=== PATIENT | female | born 1950 | race Caucasian/White ===

== ENCOUNTER 2017-03-06 11:44 | Observation (INO) ==
[2017-03-06] MEDS ORDERED: *HR* FentaNYL (PF) 100 MCG/2 ML VIAL IVP ONE (12:30)
[2017-03-06 12:39] LABS: Basophils # 0.1 K/mcL (0.0-0.2); Basophils % 0.6 %; Eosinophils # 0.3 K/mcL (0.0-0.6); Eosinophils % 2.4 %; Hematocrit 33.6 % (35.3-44.9); Hemoglobin 10.9 g/dL (11.5-15.4); Immature Granulocytes % 0.3 % (0-4); Lymphocytes # 1.5 K/mcL (0.6-4.6); Lymphocytes % 12.8 %; Mean Corpuscular HGB Conc 32.4 g/dL (31.6-35.5); Mean Corpuscular Hemoglobin 29.5 pg (28.0-33.3); Mean Corpuscular Volume 91.1 fL (83.0-100.0); Mean Platelet Volume 11.4 fL (9.4-12.4); Monocytes % 8.6 %; Neutrophils # 8.7 K/mcL (1.6-8.9); Platelet Count 271 K/mcL (140-400); Red Blood Count 3.69 M/mcL (3.82-4.97); Red Cell Distribution Width 13.2 % (11.5-14.5); Segmented Neutrophils % 75.3 %
[2017-03-06 12:45] LABS: INR 1.1; Prothrombin Time 11.6 Seconds (9.4-12.1)
[2017-03-06 12:47] LABS: Activated Partial Thrombo Time 25.6 Seconds (26.0-36.0)
[2017-03-06 12:53] LABS: Bilirubin,Urine Negative (Negative); Blood,Urine Negative (Negative); Clarity,Urine Clear (Clear); Color,Urine Yellow (Yellow); Glucose,Urine (UA) 500 mg/dL (Normal); Ketones,Urine Negative (Negative); Leukocyte Esterase,Urine Negative (Negative); Nitrite,Urine Negative (Negative); Protein,Urine >=300 mg/dL (Neg-Trace); Specific Gravity,Urine 1.027 (1.010-1.025); Urobilinogen,Urine Normal (Normal)
[2017-03-06 12:54] LABS: Bacteria,Urine None Seen per hpf (None-Few); Hyaline Casts,Urine Few per lpf (None-Few); RBC,Urine 0-3 per hpf (0-3); Squamous Epithelial Cell,Urine Many per lpf (None-Few)
[2017-03-06 12:56] LABS: Albumin 3.4 g/dL (3.5-5.7); Albumin/Globulin Ratio 1.1 (1.1-2.2); Bilirubin,Direct 0.1 mg/dL (0.0-0.2); Bilirubin,Indirect 0.4 mg/dL (0.0-1.2); Bilirubin,Total 0.5 mg/dL (0.3-1.0); Calcium 8.9 mg/dL (8.6-10.3); Globulin 3.2 g/dL (2.4-3.5); Magnesium 1.5 mg/dL (1.6-2.6); Phosphorous 2.6 mg/dL (2.7-4.5); Total Protein 6.6 g/dL (6.4-8.9)
--- NOTE | 2017-03-06 13:03 | Emergency Department Note ---
Disposition Clinical Impression: Odynophagia, Thyroglossal duct cyst, Hypoxia Dysphagia Qualifiers: Dysphagia type: esophageal phase Qualified Code(s): R13.10 - Dysphagia, unspecified Disposition: Admitted As Inpatient Time of Disposition: 16:43 General Adult HPI - General Chief complaint: ED Weakness Stated complaint: low glucose Time Seen by Provider: 03/06/17 11:53 Source: patient Limitations: no limitations Nursing Notes Reviewed: Yes Vital Signs Reviewed: Yes - History of Present Illness HPI Narrative: 66-year-old female complains of throat pain and difficulty swallowing for the past 3 days. Patient states she is unable to swallow food or liquids and is a diabetic. Patient is unsure why she has swelling in the anterior part of her throat. Patient has never had this happen before. No trauma involved. Patient denies any fevers. Patient had hypoglycemic episode levels are in the 40s. Pain Scale: 0 - Related Data Home Medications Medication Instructions Recorded Confirmed Amoxicillin/Clavulanate [Augmentin] 875 mg PO BID 03/06/17 03/06/17 Aspirin Enteric Coated [Aspirin EC] 81 mg PO DAILY 03/06/17 03/06/17 Atorvastatin Calcium [Lipitor] 80 mg PO HS 03/06/17 03/06/17 Carvedilol [Coreg] 25 mg PO BID 03/06/17 03/06/17 Cholecalciferol (D-3) [Vitamin D] 1,000 unit PO DAILY 03/06/17 03/06/17 Cinnamon Bark [Cinnamon] 1,000 mg PO DAILY 03/06/17 03/06/17 Cyanocobalamin (Vitamin B-12) 1,000 mcg PO DAILY 03/06/17 03/06/17 [Vitamin B12] Cyclobenzaprine [Flexeril] 10 mg PO HS 03/06/17 03/06/17 Fenofibrate,Micronized 130 mg PO DAILY 03/06/17 03/06/17 [Fenofibrate] Fish Oil/Dha/Epa [Fish Oil 1,200 2 each PO DAILY 03/06/17 03/06/17 mg Fish Oil] Gluc Castillo/Chondro Castillo A/Vit C/Mn 2 each PO DAILY 03/06/17 03/06/17 [Glucosamine Chondroitin Tab] Irbesartan/Hydrochlorothiazide 1 each PO DAILY 03/06/17 03/06/17 [Avalide 300-12.5 mg Tablet] Magnesium Chloride [Slow-Mag] 143 mg PO DAILY 03/06/17 03/06/17 Montelukast [Singulair] 10 mg PO DAILY 03/06/17 03/06/17 Omeprazole [PriLOSEC] 20 mg PO DAILY 03/06/17 03/06/17 Oxybutynin Chloride [Ditropan Xl] 5 mg PO DAILY 03/06/17 03/06/17 Paroxetine HCl [Paroxetine Cr] 50 mg PO DAILY 03/06/17 03/06/17 Sennosides [Senna] 17.2 mg PO DAILY 03/06/17 03/06/17 Subcutaneous Insulin Pump [T:Slim] 1 each MC AD 03/06/17 03/06/17 Tramadol HCl [Ultram] 50 mg PO Q6H PRN 03/06/17 03/06/17 clonazePAM [Klonopin] 1 mg PO DAILY 03/06/17 03/06/17 Allergies Allergy/AdvReac Type Severity Reaction Status Date / Time meperidine [From Demerol] Allergy Rash Verified 03/06/17 11:50 pioglitazone [From Actos] Allergy Rash Verified 03/06/17 11:50 All systems ED: reviewed and negative except as stated. Review of Systems: As Per HPI Constitutional: Reports: weakness. Denies: fever, chills Eyes: Denies: vision change ENT ED: Reports: congestion Cardiovascular: Denies: chest pain Respiratory: Denies: cough, dyspnea, wheezes Gastrointestinal: Denies: abdominal pain, nausea, vomiting, diarrhea Genitourinary: Denies: urgency, dysuria, frequency Musculoskeletal: Reports: neck pain. Denies: back pain Past Medical History - Past Medical History Attestation: Yes The following information was validated with the patient. Source: patient, nursing notes reviewed Medical history: Reports: diabetes, GERD, hypertension, renal disease Psychiatric history: Reports: depression - Social History Smoking Status: Never smoker Smokeless Tobacco Status: No Alcohol use: Reports: none Drug use: Reports: none Physical Exam Vital Signs Temperature 99.2 F 03/06/17 11:46 Pulse Rate 80 03/06/17 11:46 Respiratory Rate 16 03/06/17 11:46 Blood Pressure 103/66 03/06/17 11:46 O2 Sat by Pulse Oximetry 89 03/06/17 11:46 Temperature 98.2 F 03/06/17 23:32 Pulse Rate 75 03/06/17 23:32 Respiratory Rate 15 03/06/17 23:32 Blood Pressure 111/65 03/06/17 23:32 O2 Sat by Pulse Oximetry 93 03/06/17 23:32 Oxygen Delivery Oxygen Delivery Nasal Cannula 66-year-old female who is alert and oriented 3. Patient is not any immediate distress. Patient has noticeable enlargement to cricothyroid area that is tender to palpation. Patient has no submandibular swelling or elevation of her tongue. No trismus, no uvular deviation. Patient has full range of motion of her neck. Discomfort limited to anterior neck. No erythema appreciated. Mucous membranes are dry - General Limitations: no limitations General appearance: alert, in no apparent distress - Head Head exam: atraumatic, normocephalic, normal inspection - Eye Eye exam: Present: normal appearance, PERRL, EOMI - ENT ENT exam: normal exam, normal oropharynx, mucous membranes moist - Neck Neck exam: Present: trachea midline, tenderness. Absent: lymphadenopathy - Chest Chest inspection: Present: normal inspection, symmetric chest wall rise - Respiratory Respiratory exam: Present: normal lung sounds bilaterally. Absent: respiratory distress, wheezes, stridor - Cardiovascular Cardiovascular exam: Present: regular rate, normal rhythm, normal heart sounds - Abdominal Exam Abdominal exam: Present: soft, Non-Tender. Absent: tenderness, distention, guarding, rebound, rigidity - Extremities Exam Extremities exam: Present: normal inspection, full ROM. Absent: tenderness, pedal edema - Back Exam Back exam: Present: normal inspection, full ROM. Absent: tenderness, CVA tenderness (R), CVA tenderness (L) - Neurological Exam Neurological exam: Present: alert, oriented X3 - Skin Skin exam: Present: warm Course Vital Signs Temperature 99.2 F 03/06/17 11:46 Pulse Rate 80 03/06/17 11:46 Respiratory Rate 16 03/06/17 11:46 Blood Pressure 103/66 03/06/17 11:46 O2 Sat by Pulse Oximetry 89 03/06/17 11:46 Temperature 97.9 F 03/07/17 10:58 Pulse Rate 79 03/07/17 10:58 Respiratory Rate 14 03/07/17 10:58 Blood Pressure 144/80 03/07/17 10:58 O2 Sat by Pulse Oximetry 93 03/07/17 10:58 Oxygen Delivery Oxygen Delivery Nasal Cannula Medical Decision Making - [facility] Narrative Medical decision making narrative: Differential diagnosis concerning for soft tissue infection, thyroid enlargement , Nigel angina unlikely with no submandibular swelling or sublingual swelling. Patient's full range of motion of neck. Chest x-ray shows no abnormalities CT soft tissue neck: Lobulated, low-attenuation mass in the anterior midline, infrahyoid neck is most consistent with a thyroglossal duct cyst. Patient given 50 g of fentanyl for her pain and is doing better. Spoke with ENT who states that this is cyst should not interfere patient's ability to swallow. Patient has a history of esophageal stricture in the past on review of patient's records greater than [address] Jerry[address] Patient had a hypoxic episode with O2 sats recorded in the 70s. Suspect possibly PE and a V/Q scan was taken which showed low probability for PE. Patient's labs show elevation of her white count 11.6 which is actually decreased from previous accounts. Patient shows elevations of BUN and creatinine around her baseline. No other concerning elevations at this time on patient's labs. Patient has a negative troponin. Patient accepts decision for admission Dr. Padma mcnally accepted patient for admission for inability to tolerate by mouth with investigation concerning thyroglossal duct cyst and possibly esophageal strictures. ENT has been consulted. Patient is on IV hydration. Time 1540 hrs. - Lab Data Result diagrams: 03/07/17 04:09 03/07/17 04:09 Lab Results 03/06/17 03/06/17 03/06/17 Range/Units 12:00 12:32 12:32 WBC 11.6 H (4.3-11.1) K/mcL RBC 3.69 L (3.82-4.97) M/mcL Hgb 10.9 L (11.5-15.4) g/dL Hct 33.6 L (35.3-44.9) % MCV 91.1 (83.0-100.0) fL MCH 29.5 (28.0-33.3) pg MCHC 32.4 (31.6-35.5) g/dL RDW 13.2 (11.5-14.5) % Plt Count 271 (140-400) K/mcL MPV 11.4 (9.4-12.4) fL Immature Gran % 0.3 (0-4) % Seg Neutrophils % 75.3 % Lymphocytes % 12.8 % Monocytes % 8.6 % Eosinophils % 2.4 % Basophils % 0.6 % Neutrophils # 8.7 (1.6-8.9) K/mcL Lymphocytes # 1.5 (0.6-4.6) K/mcL Monocytes # 1.0 (0.0-1.3) K/mcL Eosinophils # 0.3 (0.0-0.6) K/mcL Basophils # 0.1 (0.0-0.2) K/mcL PT 11.6 (9.4-12.1) Seconds INR 1.1 APTT 25.6 L (26.0-36.0) Seconds Sodium (136-145) mEq/L Potassium (3.5-5.1) mEq/L Chloride (98-107) mEq/L Carbon Dioxide (23-29) mEq/L BUN (8-23) mg/dL Creatinine (0.60-1.20) mg/dL Est GFR ( Amer) (> 60) Est GFR (Non-Af Amer) (> 60) BUN/Creatinine Ratio (6-26) Glucose (70-105) mg/dL POC Glucose 145 H (58-89) Calculated Osmolality (280-300) Lactic Acid (0.5-2.2) mmol/L Calcium (8.6-10.3) mg/dL Phosphorus (2.7-4.5) mg/dL Magnesium (1.6-2.6) mg/dL Total Bilirubin (0.3-1.0) mg/dL Direct Bilirubin (0.0-0.2) mg/dL Indirect Bilirubin (0.0-1.2) mg/dL AST (13-39) Units/L ALT (7-52) Units/L Alkaline Phosphatase (34-104) Units/L Troponin I (< 0.04) ng/mL Serum Total Protein (6.4-8.9) g/dL Albumin (3.5-5.7) g/dL Globulin (2.4-3.5) g/dL Albumin/Globulin Ratio (1.1-2.2) Urine Color (Yellow) Urine Clarity (Clear) Urine pH (5.0-8.0) pH Units Ur Specific [place] (1.010-1.025) Urine Protein (Neg-Trace) mg/dL Urine Glucose (UA) (Normal) mg/dL Urine Ketones (Negative) mg/dL Urine Blood (Negative) Urine Nitrite (Negative) Urine Bilirubin (Negative) Urine Urobilinogen (Normal) mg/dL Ur Leukocyte Esterase (Negative) Urine Microscopic RBC (0-3) per hpf Urine Microscopic WBC (0-3) per hpf Ur Squamous Epith Cells (None-Few) per lpf Urine Bacteria (None-Few) per hpf Hyaline Casts (None-Few) per lpf Ur Culture Indicated? (NO) 03/06/17 03/06/17 03/06/17 Range/Units 12:32 12:32 12:32 WBC (4.3-11.1) K/mcL RBC (3.82-4.97) M/mcL Hgb (11.5-15.4) g/dL Hct (35.3-44.9) % MCV (83.0-100.0) fL MCH (28.0-33.3) pg MCHC (31.6-35.5) g/dL RDW (11.5-14.5) % Plt Count (140-400) K/mcL MPV (9.4-12.4) fL Immature Gran % (0-4) % Seg Neutrophils % % Lymphocytes % % Monocytes % % Eosinophils % % Basophils % % Neutrophils # (1.6-8.9) K/mcL Lymphocytes # (0.6-4.6) K/mcL Monocytes # (0.0-1.3) K/mcL Eosinophils # (0.0-0.6) K/mcL Basophils # (0.0-0.2) K/mcL PT (9.4-12.1) Seconds INR APTT (26.0-36.0) Seconds Sodium 135 L (136-145) mEq/L Potassium 4.0 (3.5-5.1) mEq/L Chloride 102 (98-107) mEq/L Carbon Dioxide 25 (23-29) mEq/L BUN 28 H (8-23) mg/dL Creatinine 1.61 H (0.60-1.20) mg/dL Est GFR ( Amer) 39 L (> 60) Est GFR (Non-Af Amer) 32 L (> 60) BUN/Creatinine Ratio 17 (6-26) Glucose 145 H (70-105) mg/dL POC Glucose (58-89) Calculated Osmolality 288 (280-300) Lactic Acid 1.2 (0.5-2.2) mmol/L Calcium 8.9 (8.6-10.3) mg/dL Phosphorus 2.6 L (2.7-4.5) mg/dL Magnesium 1.5 L (1.6-2.6) mg/dL Total Bilirubin 0.5 (0.3-1.0) mg/dL Direct Bilirubin 0.1 (0.0-0.2) mg/dL Indirect Bilirubin 0.4 (0.0-1.2) mg/dL AST 12 L (13-39) Units/L ALT 14 (7-52) Units/L Alkaline Phosphatase 42 (34-104) Units/L Troponin I < 0.03 (< 0.04) ng/mL Serum Total Protein 6.6 (6.4-8.9) g/dL Albumin 3.4 L (3.5-5.7) g/dL Globulin 3.2 (2.4-3.5) g/dL Albumin/Globulin Ratio 1.1 (1.1-2.2) Urine Color (Yellow) Urine Clarity (Clear) Urine pH (5.0-8.0) pH Units Ur Specific [place] (1.010-1.025) Urine Protein (Neg-Trace) mg/dL Urine Glucose (UA) (Normal) mg/dL Urine Ketones (Negative) mg/dL Urine Blood (Negative) Urine Nitrite (Negative) Urine Bilirubin (Negative) Urine Urobilinogen (Normal) mg/dL Ur Leukocyte Esterase (Negative) Urine Microscopic RBC (0-3) per hpf Urine Microscopic WBC (0-3) per hpf Ur Squamous Epith Cells (None-Few) per lpf Urine Bacteria (None-Few) per hpf Hyaline Casts (None-Few) per lpf Ur Culture Indicated? (NO) 03/06/17 Range/Units 12:44 WBC (4.3-11.1) K/mcL RBC (3.82-4.97) M/mcL Hgb (11.5-15.4) g/dL Hct (35.3-44.9) % MCV (83.0-100.0) fL MCH (28.0-33.3) pg MCHC (31.6-35.5) g/dL RDW (11.5-14.5) % Plt Count (140-400) K/mcL MPV (9.4-12.4) fL Immature Gran % (0-4) % Seg Neutrophils % % Lymphocytes % % Monocytes % % Eosinophils % % Basophils % % Neutrophils # (1.6-8.9) K/mcL Lymphocytes # (0.6-4.6) K/mcL Monocytes # (0.0-1.3) K/mcL Eosinophils # (0.0-0.6) K/mcL Basophils # (0.0-0.2) K/mcL PT (9.4-12.1) Seconds INR APTT (26.0-36.0) Seconds Sodium (136-145) mEq/L Potassium (3.5-5.1) mEq/L Chloride (98-107) mEq/L Carbon Dioxide (23-29) mEq/L BUN (8-23) mg/dL Creatinine (0.60-1.20) mg/dL Est GFR ( Amer) (> 60) Est GFR (Non-Af Amer) (> 60) BUN/Creatinine Ratio (6-26) Glucose (70-105) mg/dL POC Glucose (58-89) Calculated Osmolality (280-300) Lactic Acid (0.5-2.2) mmol/L Calcium (8.6-10.3) mg/dL Phosphorus (2.7-4.5) mg/dL Magnesium (1.6-2.6) mg/dL Total Bilirubin (0.3-1.0) mg/dL Direct Bilirubin (0.0-0.2) mg/dL Indirect Bilirubin (0.0-1.2) mg/dL AST (13-39) Units/L ALT (7-52) Units/L Alkaline Phosphatase (34-104) Units/L Troponin I (< 0.04) ng/mL Serum Total Protein (6.4-8.9) g/dL Albumin (3.5-5.7) g/dL Globulin (2.4-3.5) g/dL Albumin/Globulin Ratio (1.1-2.2) Urine Color Yellow (Yellow) Urine Clarity Clear (Clear) Urine pH 6.0 (5.0-8.0) pH Units Ur Specific [place] 1.027 H (1.010-1.025) Urine Protein >=300 H (Neg-Trace) mg/dL Urine Glucose (UA) 500 H (Normal) mg/dL Urine Ketones Negative (Negative) mg/dL Urine Blood Negative (Negative) Urine Nitrite Negative (Negative) Urine Bilirubin Negative (Negative) Urine Urobilinogen Normal (Normal) mg/dL Ur Leukocyte Esterase Negative (Negative) Urine Microscopic RBC 0-3 (0-3) per hpf Urine Microscopic WBC 5-15 H (0-3) per hpf Ur Squamous Epith Cells Many H (None-Few) per lpf Urine Bacteria None Seen (None-Few) per hpf Hyaline Casts Few (None-Few) per lpf Ur Culture Indicated? NO (NO) - Radiology Data Radiology results reviewed: Yes I reviewed the patient's radiology results. Chest X-Ray 03/06/17 12:17 IMPRESSION: 1. No active pulmonary disease. 2. Stable cardiomegaly without overt failure. D/ / Reed Kurtz MD / Reed Kurtz MD Interpreting Provider: Reed Kurtz MD Soft Tissue Neck CT 03/06/17 12:17 IMPRESSION: Lobulated, low-attenuation mass in the anterior midline, infrahyoid neck is most consistent with a thyroglossal duct cyst. D/ / 03/06/2017 13:58:42 Gracy Wilson MD / laila Interpreting Provider: Gracy Wilson MD Pulmonary Perfusion Imaging 03/06/17 14:03 IMPRESSION: Low Probability for Pulmonary Embolus. D/ / Kennedy Beltrán MD / Kennedy Beltrán MD Interpreting Provider: Kennedy Beltrán MD - EKG Data EKG #1 EKG attestation: Yes I reviewed and interpreted this EKG. EKG results narrative: EKG taken today shows sinus rhythm at a rate of [address] elevations or depressions any leads, no cures widened QT prolongation. Attestation Statement - Attestation Attestation: I examined this patient and my medical decision-making was reviewed with the Resident Physician. I agree with the documented findings, disposition and treatment plan as described except to the extent set forth below. Patient to ED with difficulty swallowing. Patient has been having trouble swallowing. She is on insulin pump and has not been able to eat anything. Her blood sugar was low at the physician's office this morning so they sent her to the ED for evaluation. On arrival here she is awake and alert with a blood sugar to 140s. Has some mild fullness to the anterior neck. No erythema. Plan. CT neck shows a possible thyroglossal duct cyst. Has been discussed with the ENT who does not elicit the causing the problem with her swallowing. She Is Getting Hypoglycemic. She Is Admitted to Medicine. She Was Also Hypoxic. Had a VQ Scan That Was Negative for PE. 35 minutes of critical care exclusive of separately billable procedures.
[2017-03-06] MEDS ORDERED: *HR* HYDROmorphone (PF) 1 MG/ML SYRINGE IVP PRN (16:11)
[2017-03-06] MEDS ORDERED: *HR* Promethazine 25 MG/ML VIAL IVP PRN (16:11)
[2017-03-06] MEDS ORDERED: Naloxone 0.4 MG/ML INJ IVP PRN (16:11)
[2017-03-06] MEDS ORDERED: Ondansetron 4 MG/2 ML VIAL IVP PRN (16:11)
[2017-03-06] MEDS ORDERED: Dextrose Gel 15 GM PO PRN ×2 (16:18)
[2017-03-06] MEDS ORDERED: *HR* Dextrose 50 % in Water (Syg) 50 ML SYRINGE IVP PRN (16:18)
[2017-03-06] MEDS ORDERED: D5% in Water 1,000 ML IVC PRN (16:18)
--- NOTE | 2017-03-06 16:23 | Internal Med History&Physical ---
Date of Encounter: 03/07/17 Time of Encounter: 16:30 Assessment and Plan (1) Dysphagia Current visit: Yes Status: Acute This is associated with odynophagia. I am not certain that her swallowing issues are totally related to the thyroglossal duct enlargement/cyst that was noted on the CT. Not exactly sure this is a mass. She also has a history of esophageal stricture. She had some dilation a couple years back by Dr. Jerry. For now I will admit the patient to the hospitalist service consultation to ENT. She may need consulting GI. Will get speech to evaluate the patient. We will put the patient on empiric antibiotics with Zosyn. Clear liquid diet. NPO tomorrow morning in case any procedures would need to be done. Gentle hydration. Pain control. Antiemetics. Qualifiers: Dysphagia type: unspecified Qualified Code(s): R13.10 - Dysphagia, unspecified (2) CKD (chronic kidney disease) stage 3, GFR 30-59 ml/min Current visit: Yes Status: Acute Creatinine 0 baseline. We will continue to monitor. (3) Diabetes mellitus Current visit: Yes Status: Acute Patient had hypoglycemia when she came in as she has not had significant oral intake today. She does have an insulin pump. I have asked her to turn that off. We will use insulin sliding scale for now. Continue Accu-Cheks Qualifiers: Diabetes mellitus type: type 2 Diabetes mellitus complication status: without complication Diabetes mellitus half-way insulin use: with half-way use Qualified Code(s): E11.9 - Type 2 diabetes mellitus without complications ; Z79.4 - ferry terminal agent (current) use of insulin; Z79.4 - senior care (current) use of insulin; Z79.4 - senior care (current) use of insulin; Z79.4 - senior care ( current) use of insulin (4) Hypertension Current visit: Yes Status: Acute Resume home meds. Qualifiers: Hypertension type: essential hypertension Qualified Code(s): I10 - Essential (primary) hypertension (5) Depression Current visit: Yes Status: Acute Continue with home antidepressants Qualifiers: Depression Type: unspecified Qualified Code(s): F32.9 - Major depressive disorder, single episode, unspecified (6) DVT prophylaxis Current visit: Yes Status: Acute Present subcutaneous Internal Medicine - H&P: HPI Chief complaint: Trouble swallowing Admitted From: Home Plans for Post Hospital Care: Home History of present illness: Ms. Del Toro is a 66 year old female history of hypertension, COPD, depression, hyperlipidemia, and urinary incontinence who presents to us on 02/04/2017 through the ED at [facility] with complaints of dysphagia that has been going on for months. The patient's story goes back to about 4-5 years ago when she had trouble swallowing. She says that she has swallowing issues to both liquids and solids but she actually says it is more to liquids. She also associated that with odynophagia. She says she goes into choking spells. She is able to eat whatever she wants however she has to be mindful of her possibility of choking. Because of that she seeked help and about 2 years ago ended up seeing Dr. Jerry who took her for an EGD and underwent esophageal dilation although there was no significant strictures seen in the esophagus based on the EGD report. She did well for about a year to 2 years however over the last few months she has been dealing with dysphagia with odynophagia to liquids and solids again. Over the last 3 days she has noticed significant swelling in her neck and because of that she went to see her primary care physician. She also reports chills but no nausea vomiting or measure temperature. She ended up being sent to the ED where she underwent a workup that included laboratory workup that showed that she had mild elevated white count. She was also hypoxic with sats in the upper 80s to low 90s and given her kidney function she underwent a VQ scan which came back with low probability for PE. The patient underwent a CT of her neck given the swelling and it showed what looked like a mass in the anterior midline, infrahyoid neck possibly being thyroglossal duct cyst. The patient when she presented had glucose in the 40s which came back up with some oral intake. She has not had much oral intake today. This is due to the dysphagia. Of note the patient uses an insulin pump. She denies any headache, blurry vision, nausea, vomiting , chest pain, shortness of breath, abdominal pain, urinary symptoms, or neurological symptoms. Past Med Surg Social Fam HX - Past Medical History Medical history: diabetes, GERD, hypertension, renal disease Psychiatric history: depression - Social History Smoking Status: Never smoker Smokeless Tobacco Status: No Alcohol use: none Drug use: none - Family History Mother Living Status: Age at : 87 Cause of : c-diff Hx Family Cardiac Disorders: Yes Hx Family Respiratory Disorders: Yes Internal Medicine - H&P: Meds Amoxicillin/Clavulanate [Augmentin] 875 mg PO BID 03/06/17 [History] Aspirin Enteric Coated [Aspirin EC] 81 mg PO DAILY 03/06/17 [History] Atorvastatin Calcium [Lipitor] 80 mg PO HS 03/06/17 [History] Carvedilol [Coreg] 25 mg PO BID 03/06/17 [History] Cholecalciferol (D-3) [Vitamin D] 1,000 unit PO DAILY 03/06/17 [History] Cinnamon Bark [Cinnamon] 1,000 mg PO DAILY 03/06/17 [History] Cyanocobalamin (Vitamin B-12) [Vitamin B12] 1,000 mcg PO DAILY 03/06/17 [History ] Cyclobenzaprine [Flexeril] 10 mg PO HS 03/06/17 [History] Fenofibrate,Micronized [Fenofibrate] 130 mg PO DAILY 03/06/17 [History] Fish Oil/Dha/Epa [Fish Oil 1,200 mg Fish Oil] 2 each PO DAILY 03/06/17 [History] Gluc Castillo/Chondro Castillo A/Vit C/Mn [Glucosamine Chondroitin Tab] 2 each PO DAILY [History] Irbesartan/Hydrochlorothiazide [Avalide 300-12.5 mg Tablet] 1 each PO DAILY [History] Magnesium Chloride [Slow-Mag] 143 mg PO DAILY 03/06/17 [History] Montelukast [Singulair] 10 mg PO DAILY 03/06/17 [History] Omeprazole [PriLOSEC] 20 mg PO DAILY 03/06/17 [History] Oxybutynin Chloride [Ditropan Xl] 5 mg PO DAILY 03/06/17 [History] Paroxetine HCl [Paroxetine Cr] 50 mg PO DAILY 03/06/17 [History] Sennosides [Senna] 17.2 mg PO DAILY 03/06/17 [History] Subcutaneous Insulin Pump [T:Slim] 1 each MC AD 03/06/17 [History] Tramadol HCl [Ultram] 50 mg PO Q6H PRN 03/06/17 [History] clonazePAM [Klonopin] 1 mg PO DAILY 03/06/17 [History] 3 Allergy/AdvReac Type Severity Reaction Status Date / Time meperidine [From Demerol] Allergy Rash Verified 03/06/17 11:50 pioglitazone [From Actos] Allergy Rash Verified 03/06/17 11:50 All Systems PM: A 10-system review of systems was performed and is negative for pertinent findings except as documented above in the HPI. Review of systems: All systems reviewed are negative except for as mentioned above - Constitutional Vitals: Temp Pulse Resp BP Pulse Ox 99.2 F 79 20 121/65 94 03/06/17 11:46 03/06/17 14:38 03/06/17 14:38 03/06/17 14:38 03/06/17 14:38 Exam: GEN: NAD HEENT: AT, swelling noted in the anterior neck midline with swelling extending laterally to both sides. Non tender. No erythema. No cyanosis, oral mucosa is moist, No JVD Lymphatics: No lymphadenoapthy Eyes: Extrocular muscles intact, anicteric CVS:RRR. S1, S2, No m/r/g RESP: CTAB ABD: Soft, NT, ND, +BS EXT: No edema, No rashes, 2+ DP NEURO: Nonfocal, CN II-XII intact, No focal motor or sensory deficits Psych: Cooperative, Not anxious or depressed Internal Med - H&P Results - Labs CBC & Chem 7: 03/07/17 04:09 03/07/17 04:09
[2017-03-06] MEDS: Insulin LISPRO 300 UNITS/3 ML VIAL SQ SCH (18:39)
[2017-03-06] MEDS: Piperacillin/Tazobactam 3.375 GM/200 ML BAG IVPB SCH (18:43)
[2017-03-06] MEDS: *HR* Heparin 5,000 UNIT/ML VIAL SQ SCH (20:55)
[2017-03-06] MEDS: 0.9 % Sodium Chloride 1,000 ML IVC SCH (20:56)
[2017-03-06] MEDS ORDERED: Insulin LISPRO 300 UNITS/3 ML VIAL SQ SCH (21:00)
[2017-03-07] MEDS ORDERED: clonazePAM 1 MG TABLET PO PRN (00:21)
[2017-03-07] MEDS: Piperacillin/Tazobactam 3.375 GM/200 ML BAG IVPB SCH ×2 (02:54→10:15)
[2017-03-07 04:30] LABS: Basophils # 0.1 K/mcL (0.0-0.2); Basophils % 0.5 %; Eosinophils # 0.3 K/mcL (0.0-0.6); Eosinophils % 2.5 %; Hematocrit 30.8 % (35.3-44.9); Hemoglobin 10.1 g/dL (11.5-15.4); Immature Granulocytes % 0.2 % (0-4); Lymphocytes # 2.1 K/mcL (0.6-4.6); Lymphocytes % 19.4 %; Mean Corpuscular HGB Conc 32.8 g/dL (31.6-35.5); Mean Corpuscular Hemoglobin 29.7 pg (28.0-33.3); Mean Corpuscular Volume 90.6 fL (83.0-100.0); Mean Platelet Volume 11.5 fL (9.4-12.4); Monocytes # 0.7 K/mcL (0.0-1.3); Monocytes % 6.9 %; Neutrophils # 7.5 K/mcL (1.6-8.9); Platelet Count 245 K/mcL (140-400); Red Cell Distribution Width 13.2 % (11.5-14.5); Segmented Neutrophils % 70.5 %
[2017-03-07 04:40] LABS: Calcium 8.6 mg/dL (8.6-10.3); Potassium 3.9 mEq/L (3.5-5.1)
[2017-03-07] MEDS: *HR* Heparin 5,000 UNIT/ML VIAL SQ SCH (06:13)
[2017-03-07] MEDS: 0.9 % Sodium Chloride 1,000 ML IVC SCH ×2 (06:32→10:15)
[2017-03-07] MEDS: Insulin LISPRO 300 UNITS/3 ML VIAL SQ SCH (08:56)
--- NOTE | 2017-03-07 10:57 | Discharge Summary ---
Date of Encounter: 03/07/17 Time of Encounter: 11:00 - Discharge Diagnosis (1) Dysphagia Priority: Primary Status: Acute Qualifiers: Dysphagia type: unspecified Qualified Code(s): R13.10 - Dysphagia, unspecified (2) CKD (chronic kidney disease) stage 3, GFR 30-59 ml/min Priority: Secondary Status: Acute (3) Diabetes mellitus Priority: Secondary Status: Acute Qualifiers: Diabetes mellitus type: type 2 Diabetes mellitus complication status: without complication Diabetes mellitus shelter insulin use: with ferry terminal agent use Qualified Code(s): E11.9 - Type 2 diabetes mellitus without complications ; Z79.4 - exterminator (current) use of insulin; Z79.4 - senior living (current) use of insulin; Z79.4 - exterminator (current) use of insulin; Z79.4 - exterminator ( current) use of insulin (4) Hypertension Priority: Secondary Status: Acute Qualifiers: Hypertension type: essential hypertension Qualified Code(s): I10 - Essential (primary) hypertension (5) Depression Priority: Secondary Status: Acute Qualifiers: Depression Type: unspecified Qualified Code(s): F32.9 - Major depressive disorder, single episode, unspecified - Discharge Medications Home Medications: Amoxicillin/Clavulanate [Augmentin] 875 mg PO BID 03/06/17 [History] Aspirin Enteric Coated [Aspirin EC] 81 mg PO DAILY 03/06/17 [History] Atorvastatin Calcium [Lipitor] 80 mg PO HS 03/06/17 [History] Carvedilol [Coreg] 25 mg PO BID 03/06/17 [History] Cholecalciferol (D-3) [Vitamin D] 1,000 unit PO DAILY 03/06/17 [History] Cinnamon Bark [Cinnamon] 1,000 mg PO DAILY 03/06/17 [History] Cyanocobalamin (Vitamin B-12) [Vitamin B12] 1,000 mcg PO DAILY 03/06/17 [History ] Cyclobenzaprine [Flexeril] 10 mg PO HS 03/06/17 [History] Fenofibrate,Micronized [Fenofibrate] 130 mg PO DAILY 03/06/17 [History] Fish Oil/Dha/Epa [Fish Oil 1,200 mg Fish Oil] 2 each PO DAILY 03/06/17 [History] Gluc Castillo/Chondro Castillo A/Vit C/Mn [Glucosamine Chondroitin Tab] 2 each PO DAILY [History] Irbesartan/Hydrochlorothiazide [Avalide 300-12.5 mg Tablet] 1 each PO DAILY [History] Magnesium Chloride [Slow-Mag] 143 mg PO DAILY 03/06/17 [History] Montelukast [Singulair] 10 mg PO DAILY 03/06/17 [History] Omeprazole [PriLOSEC] 20 mg PO DAILY 03/06/17 [History] Oxybutynin Chloride [Ditropan Xl] 5 mg PO DAILY 03/06/17 [History] Paroxetine HCl [Paroxetine Cr] 50 mg PO DAILY 03/06/17 [History] Sennosides [Senna] 17.2 mg PO DAILY 03/06/17 [History] Subcutaneous Insulin Pump [T:Slim] 1 each MC AD 03/06/17 [History] Tramadol HCl [Ultram] 50 mg PO Q6H PRN 03/06/17 [History] clonazePAM [Klonopin] 1 mg PO DAILY 03/06/17 [History] Allergies/Adverse Reactions: 3 Allergy/AdvReac Type Severity Reaction Status Date / Time meperidine [From Demerol] Allergy Rash Verified 03/06/17 11:50 pioglitazone [From Actos] Allergy Rash Verified 03/06/17 11:50 Date of admission: 03/06/17 16:13 Primary care physician: Marc Michaud - Patient Status Disposition: Home, Self-Care Overall status at discharge: patient is progressing back to baseline - Discharge Instructions Follow Up With: Almita Damian DO [Primary Care Provider] - (Your appointment has been webrequested. Our offices will call you with an appointment time and date. Thank You. ) Jo Álvarez DO [Non-Partnered Physician] - (2 weeks) - Diet and Activity Activity: resume usual activities as tolerated Hospital course: Ms. Del Toro is a 66 year old female with history of hypertension, COPD, depression , hyperlipidemia, and urinary incontinence who presented to us on 02/04/2017 through the ED at [facility] with complaints of dysphagia that has been going on for months. The patient's story goes back to about 4-5 years ago when she had trouble swallowing. She says that she has swallowing issues to both liquids and solids but she actually says it is more to liquids. She also associated that with odynophagia. She says she goes into choking spells. She is able to eat whatever she wants however she has to be mindful of her possibility of choking. Because of that she seeked help and about 2 years ago ended up seeing Dr. Jerry who took her for an EGD and underwent esophageal dilation although there was no significant strictures seen in the esophagus based on the EGD report. She did well for about a year to 2 years however over the last few months she has been dealing with dysphagia with odynophagia to liquids and solids again. Over the last 3 days she has noticed significant swelling in her neck and because of that she went to see her primary care physician. She ended up being sent to the ED where she underwent a workup that included laboratory workup that showed that she had mild elevated white count. She was also hypoxic with sats in the upper 80s to low 90s and given her kidney function she underwent a VQ scan which came back with low probability for PE. She had no issues with hypoxia while hospitalized after that. The patient underwent a CT of her neck given the swelling and it showed what looked like a mass in the anterior midline, infrahyoid neck possibly being thyroglossal duct cyst. The patient was admitted to the hospitalist service. We had ENT see the patient with thought that this is likely viral. They recommended that she follows up with them and outpatient settings. She underwent a flexible laryngoscopy which showed mild edema of the supraglottic area. There was trace mucus seen which were thought to be likely secondary to a viral upper respiratory infection. The patient would need follow-up with ENT as well as her primary care physician. It is probably worth it for her to follow-up with GI as well if this continues. She was cleared for discharge by ENT on 2016. - Time Spent with Patient Total time spent providing and/or coordinating discharge services: Greater than 30 minutes - Constitutional Vitals: Temp Pulse Resp BP Pulse Ox 97.6 F 74 15 150/73 90 03/07/17 07:18 03/07/17 07:18 03/07/17 07:18 03/07/17 07:18 03/07/17 07:18 Exam: GEN: NAD HEENT: AT, swelling noted in the anterior neck midline with swelling extending laterally to both sides. Non tender. No erythema. No cyanosis, oral mucosa is moist, No JVD CVS:RRR. S1, S2, No m/r/g RESP: CTAB ABD: Soft, NT, ND, +BS EXT: No edema, No rashes, 2+ DP NEURO: Nonfocal, CN II-XII intact, No focal motor or sensory deficits
--- NOTE | 2017-03-07 10:59 | ENT - Procedure Note ---
Date of procedure: 03/07/17 Pre-op diagnosis: Hoarseness, dysphagia Post-op diagnosis: same Procedure: Flexible laryngoscopy: Procedure was explained to the patient at the bedside verbal consent was obtained. Bilateral nares are sprayed with a 50-50 mixture of oxymetazoline and topical lidocaine. Time was given to allow anesthesia as well as decongestion of the nasal airway. Flexible laryngoscope was then advanced into the right naris. Nasal mucosa was dry and atrophic. Scope was further advanced, nasopharynx was within normal limits, tongue base was normal without mass or lesion, epiglottis was normal, piriform sinuses were open without mass or obstruction. True vocal cords were slightly edematous but good movement bilaterally Good glottic opening with full AB duction of the vocal cords bilaterally. Subglottis showed no obstruction. Patient had diffuse mild supraglottic edema and a trace amount of mucus pooling within the piriforms and over the AE folds and postcricoid areas. Patient tolerated this procedure well. Overall patient with some mild edema of the supraglottic shuck sugars with trace mucus likely from viral URI causing her to hoarseness and sore throat. No narrowing or obstruction of the airway no masses or lesions visualized CPT: 31036 Laryngoscopy, flexible fiberoptic; diagnostic Anesthesia: local Surgeon: Jo Álvarez Was there an assistant infant teacher present: No Estimated blood loss (cc): 0 Condition: stable
[2017-03-07 11:04] VITALS: BP 144/80
--- NOTE | 2017-03-07 11:19 | ENT - Consult Note ---
Date of Encounter: 03/07/17 Time of Encounter: 11:00 Assessment and Plan (1) Odynophagia Current Visit: Yes Status: Acute Patient reports symptom of odynophagia starting 3 days ago, with associated voice hoarseness. Laryngoscopy performed at bedside today, with no largely abnormal findings. See laryngoscopy procedure note for details. Suspect odynophagia and voice hoarseness is related to active acute upper respiratory tract infection. (2) Thyroglossal duct cyst Current Visit: Yes Status: Acute CT of soft tissue and neck revealed a Lobulated, low-attenuation mass in the anterior midline, infrahyoid neck reported as most consistent with a thyroglossal duct cyst. Palpable midline mass, that elevates with swallowing, present upon physical examination today. Outpatient follow up in ENT office scheduled for management of thyroglossal duct cyst. (3) Dysphagia Current Visit: Yes Status: Acute Patient reports chronic issue of dysphagia for several years, with history of esophageal dilation by GI. Laryngoscopy performed at bedside today, with no acute findings that would be contributory to patient's reported dysphagia. Recommend follow up with GI for further evaluation of dysphagia. Qualifiers: Dysphagia type: unspecified Qualified Code(s): R13.10 - Dysphagia, unspecified History of Present Illness Consult date: 03/07/17 Reason for ENT Consult: other (dysphagia, hoarseness) Requesting physician: Candace Alvarez History of present illness: Patient is a 66 year old female, admitted for complaint of ongoing dysphagia. Patient reports worsening symptoms, hoarseness, and odynophagia for the last 3 days. Patient reports persistent issue of dysphagia for several years. She also has a history of esophageal stricture with dilation as performed by GI, approximately 2 years ago. Past Med Surg Social Fam HX - Past Medical History Medical history: diabetes, GERD, hypertension, renal disease Psychiatric history: depression - Past Surgical History Surgical History: hysterectomy - Social History Smoking Status: Never smoker Smokeless Tobacco Status: No Alcohol use: none Drug use: none - Family History Mother Living Status: Age at : 87 Cause of : c-diff Hx Family Cardiac Disorders: Yes Hx Family Respiratory Disorders: Yes Medications and Allergies Amoxicillin/Clavulanate [Augmentin] 875 mg PO BID 03/06/17 [History] Aspirin Enteric Coated [Aspirin EC] 81 mg PO DAILY 03/06/17 [History] Atorvastatin Calcium [Lipitor] 80 mg PO HS 03/06/17 [History] Carvedilol [Coreg] 25 mg PO BID 03/06/17 [History] Cholecalciferol (D-3) [Vitamin D] 1,000 unit PO DAILY 03/06/17 [History] Cinnamon Bark [Cinnamon] 1,000 mg PO DAILY 03/06/17 [History] Cyanocobalamin (Vitamin B-12) [Vitamin B12] 1,000 mcg PO DAILY 03/06/17 [History ] Cyclobenzaprine [Flexeril] 10 mg PO HS 03/06/17 [History] Fenofibrate,Micronized [Fenofibrate] 130 mg PO DAILY 03/06/17 [History] Fish Oil/Dha/Epa [Fish Oil 1,200 mg Fish Oil] 2 each PO DAILY 03/06/17 [History] Gluc Castillo/Chondro Castillo A/Vit C/Mn [Glucosamine Chondroitin Tab] 2 each PO DAILY [History] Irbesartan/Hydrochlorothiazide [Avalide 300-12.5 mg Tablet] 1 each PO DAILY [History] Magnesium Chloride [Slow-Mag] 143 mg PO DAILY 03/06/17 [History] Montelukast [Singulair] 10 mg PO DAILY 03/06/17 [History] Omeprazole [PriLOSEC] 20 mg PO DAILY 03/06/17 [History] Oxybutynin Chloride [Ditropan Xl] 5 mg PO DAILY 03/06/17 [History] Paroxetine HCl [Paroxetine Cr] 50 mg PO DAILY 03/06/17 [History] Sennosides [Senna] 17.2 mg PO DAILY 03/06/17 [History] Subcutaneous Insulin Pump [T:Slim] 1 each MC AD 03/06/17 [History] Tramadol HCl [Ultram] 50 mg PO Q6H PRN 03/06/17 [History] clonazePAM [Klonopin] 1 mg PO DAILY 03/06/17 [History] 3 Allergy/AdvReac Type Severity Reaction Status Date / Time meperidine [From Demerol] Allergy Rash Verified 03/06/17 11:50 pioglitazone [From Actos] Allergy Rash Verified 03/06/17 11:50 ENT - ROS - Constitutional Constitutional ROS: as per HPI - EENT Nose, mouth and throat: as per HPI, dysphagia, hoarseness, odynophagia ENT Exam Initial Vital Signs Temp Pulse Resp BP Pulse Ox 99.2 F 80 16 103/66 89 03/06/17 11:46 03/06/17 11:46 03/06/17 11:46 03/06/17 11:46 03/06/17 11:46 - General physical appearance well developed, well nourished, no distress, other. negative: moderate distress , severe distress, severe pain, cachectic, obese - Eyes normal ocular movement - ENT normal pinna, normal nares, normal mucosa, CN 2-12 grossly intact, Other ( septum grossly midline. TM's normal bilaterally. Teeth in good repair. Tonsils 2 + and cryptic in appearance. Thin mucus noted throughout larynx during laryngoscopy procedure. ) - Neck trachea midline, no lymphadectomy, other (palpable midline mass elevates with swallowing. ) - Respiratory normal expansion, normal respiratory effort Exam Initial Vital Signs Temp Pulse Resp BP Pulse Ox 99.2 F 80 16 103/66 89 03/06/17 11:46 03/06/17 11:46 03/06/17 11:46 03/06/17 11:46 03/06/17 11:46 Results - Labs 03/07/17 04:09 03/07/17 04:09 Abnormal lab results RBC 3.40 M/mcL (3.82-4.97) L 03/07/17 04:09 Hgb 10.1 g/dL (11.5-15.4) L 03/07/17 04:09 Hct 30.8 % (35.3-44.9) L 03/07/17 04:09 APTT 25.6 Seconds (26.0-36.0) L 03/06/17 12:32 Carbon Dioxide 30 mEq/L (23-29) H 03/07/17 04:09 BUN 24 mg/dL (8-23) H 03/07/17 04:09 Creatinine 1.53 mg/dL (0.60-1.20) H 03/07/17 04:09 Est GFR ( Amer) 41 (> 60) L 03/07/17 04:09 Est GFR (Non-Af Amer) 34 (> 60) L 03/07/17 04:09 POC Glucose 135 (58-89) H 03/06/17 17:18 Phosphorus 2.6 mg/dL (2.7-4.5) L 03/06/17 12:32 Magnesium 1.5 mg/dL (1.6-2.6) L 03/06/17 12:32 AST 12 Units/L (13-39) L 03/06/17 12:32 Albumin 3.4 g/dL (3.5-5.7) L 03/06/17 12:32 Ur Specific [place] 1.027 (1.010-1.025) H 03/06/17 12:44 Urine Protein >=300 mg/dL (Neg-Trace) H 03/06/17 12:44 Urine Glucose (UA) 500 mg/dL (Normal) H 03/06/17 12:44 Urine Microscopic WBC 5-15 per hpf (0-3) H 03/06/17 12:44 Ur Squamous Epith Cells Many per lpf (None-Few) H 03/06/17 12:44 Diabetes panel 03/07/17 Range/Units 04:09 Sodium 138 (136-145) mEq/L Potassium 3.9 (3.5-5.1) mEq/L Chloride 104 (98-107) mEq/L Carbon Dioxide 30 H (23-29) mEq/L BUN 24 H (8-23) mg/dL Creatinine 1.53 H (0.60-1.20) mg/dL Glucose 96 (70-105) mg/dL Calcium 8.6 (8.6-10.3) mg/dL Calcium panel 03/07/17 Range/Units 04:09 Calcium 8.6 (8.6-10.3) mg/dL Pituitary panel 03/07/17 Range/Units 04:09 Sodium 138 (136-145) mEq/L Potassium 3.9 (3.5-5.1) mEq/L Chloride 104 (98-107) mEq/L Carbon Dioxide 30 H (23-29) mEq/L BUN 24 H (8-23) mg/dL Creatinine 1.53 H (0.60-1.20) mg/dL Glucose 96 (70-105) mg/dL Calcium 8.6 (8.6-10.3) mg/dL Adrenal panel 03/07/17 Range/Units 04:09 Sodium 138 (136-145) mEq/L Potassium 3.9 (3.5-5.1) mEq/L Chloride 104 (98-107) mEq/L Carbon Dioxide 30 H (23-29) mEq/L BUN 24 H (8-23) mg/dL Creatinine 1.53 H (0.60-1.20) mg/dL Glucose 96 (70-105) mg/dL Calcium 8.6 (8.6-10.3) mg/dL All other labs normal. Consult Discharge Plan - Plan Referrals: Almita Damian DO [Primary Care Provider] - (Your appointment has been webrequested. Our offices will call you with an appointment time and date. Thank You. ) Jo Álvarez DO [Non-Partnered Physician] - (2 weeks)
--- NOTE | 2017-03-07 19:59 | Electrocardiograph Report ---
[place] [id number] Test Date: 2017-03-06 Pat Name: Katalina Del Toro Department: 104 Room: 3B44 Gender: F Shelter Case Manager: MIGUEL : 1950 Requested By: Marla See Order Number: [id number] Reading MD: Chago Dumont MD Measurements Intervals [place] Rate: 77 P: 25 SD: 167 QRS: -28 QRSD: 98 T: 14 QT: 369 QTc: 400 Interpretive Statements SINUS RHYTHM BORDERLINE LEFT AXIS DEVIATION VOLTAGE CRITERIA FOR LVH Poor R wave progression Electronically Signed On 03-07-2017 19:58:16 EST by Chago Dumont MD
== END 2017-03-07 14:14 | disposition home or self-care (01) ==
LOC: 3BNU 11:44 → EMEROO 11:44 → 3BNU 16:53
PROVIDERS: ADMIT Internal Medicine Nephrology; ATTEND Registered Nurse